=== PATIENT | male | born 1990 | race Caucasian/White ===

== ENCOUNTER 2016-12-03 13:41 | Emergency (ER) | payer BC, OTHER ==
[2016-12-03] MEDS ORDERED: CYCLOBENZAPRINE HCL 10 MG TABLET PO ONE (14:06)
[2016-12-03] MEDS ORDERED: KETOROLAC TROMETHAMINE 60 MG/2 ML VIAL IM ONE ×2 (14:06→14:12)
[2016-12-03] MEDS ORDERED: CYCLOBENZAPRINE HCL 10 MG TABLET ONE (14:12)
--- NOTE | 2016-12-03 15:13 | ERNOTE ---
Head Injury HPI - Narrative Date of Service: 12/03/16 - General Injury to: other - neck Time Seen by Provider: 12/03/16 14:00 Source: patient Exam Limitations: no limitations - Immun/Allergies/Home Medications Immunization: IMMUNIZATION HX Immunizations Up to Date Yes History of Influenza Vaccine No Hx Pneumococcal Vaccination No Allergies/Adverse Reactions: Allergies Allergy/AdvReac Type Severity Reaction Status Date / Time No Known Allergies Allergy Verified 12/03/16 13:56 Home Medications: HOME MEDICATIONS Cyclobenzaprine HCl [Flexeril] 10 mg PO TID PRN #30 tab 12/03/16 [Last Taken Unknown] Omeprazole 40 mg PO DAILY 12/03/16 [Last Taken Unknown] - History of Present Illness Occurred: just prior to arrival Location Occurred: work Severity: moderate Method of Injury: Reports: no apparent injury Loss of Consciousness: Reports: no loss of consciousness Associated Symptoms: Reports: neck pain. Denies: chest pain, headaches Review of Systems - Review of Systems Constitutional: Present: no symptoms reported EYE: Present: no symptoms reported ENT: Present: no symptoms reported Respiratory: Present: no symptoms reported Cardiology: Present: no symptoms reported Gastrointestinal/Abdominal: Present: no symptoms reported Genitourinary: Present: no symptoms reported Musculoskeletal: Present: See HPI, muscle pain, muscle stiffness, neck pain Skin: Present: no symptoms reported Neurological: Present: no symptoms reported. Absent: headache, weakness, numbness Endocrine: Present: no symptoms reported Hematologic/Lymphatic: Present: no symptoms reported Psych: Present: no symptoms reported - Patient's Past Medical History Patient History - Medical: No pertinent hx Patient History - Cardiac/Respiratory: No pertinent hx Patient History - Cancer: No Hx of Cancer Patient History - Surgical Procedures: Other Patient History - Other: None - Social History Living Situations: home Abuse History: No History of abuse Psych History: No pertinent hx Smoking Status: Never smoker Alcohol Use: none Drug Use: none - Immunizations Immunizations Up to Date: Yes Hx Pneumococcal Vaccination: No History of Influenza Vaccine: No Physical Exam - Physical Exam Narrative: This 26-year-old male has increased pain over his left trapezius area that radiates up his back and shoulder. patient states he noticed increase pain when he stepped down a stair. Patient denies injuring it today state he did jump a fence yesterday at work but did not hit his neck or shoulder area. Patient does have pain with left arm resistant examination test during examination. General Appearance: Present: wd/wn, alert, no apparent distress Eye Exam: Normal inspection: bilateral Ears, Nose, Throat: Present: normal ENT inspection Neck: Present: limited range of motion. Absent: full range of motion Respiratory: Present: no respiratory distress Cardiovascular/Chest: Present: regular rate, rhythm, no murmur Gastrointestinal/Abdominal: Present: normal bowel sounds Back Exam: Present: muscle spasm Extremity Exam: Present: normal inspection, normal range of motion Neurological Exam: Present: alert, oriented, normal mood/affect, no motor/ sensory deficits Skin Exam: Present: normal color Lymphatic Exam: Present: no adenopathy ED Progress - Vital Signs Patient's Vital Signs:: I have reviewed the patient's vital signs. Vital Signs: Vital Signs 12/03/16 13:46 Temperature 37 C Pulse Rate 80 Respiratory 12 Rate Blood Pressure 146/94 O2 Sat by Pulse 97 Oximetry - Progress/Reassessment Chief Complaint: Neck Pain/Injury Progress:: Improved Plan - Plan Plan: 26-year-old male presents to the emergency room for neck pain. He states that he has been seeing a chiropractor for this neck pain, and has had adjustments and has had this pain before. I recommended that this patient returned to his chiropractor primary care physician and suggest maybe some physical therapy since this seems to be an ongoing process. Departure Clinical Impression: Trapezius muscle spasm - Departure Disposition: Home Follow Up Needed Condition: Stable Instructions: Muscle Pain, Adult, Muscle Cramps and Spasms, [id number], Heat Therapy, [id number], Form - Excuse from Work, School, or Physical Activity Additional Instructions: continue to take previous home medications as prescribed. May take over-the- counter anti-inflammatories as needed for pain. Continue to take the over the prescribed a muscle relaxer as needed for pain. Follow-up with doctor on Monday. Return To the emergency room if symptoms persist or become worse. Referrals: Behzad Christensen DO [Primary Care Provider] - Prescriptions: Cyclobenzaprine HCl [Flexeril] 10 mg PO TID PRN #30 tab PRN Reason: MUSCLE SPASMS
[2016-12-03 15:24] VITALS: BP 144/88
== END 2016-12-03 15:22 | disposition home or self-care (01) ==
LOC: ER 13:41
DX: M62.838 Other muscle spasm (principal)